=== PATIENT | female | born 1950 | race Caucasian/White ===

== ENCOUNTER 2018-08-28 18:31 | Inpatient (IN) | payer MEDICARE ==
[~2018-08-28] VITALS: Ht 162.6 cm; Wt 58.0 kg
[2018-08-28] MEDS ORDERED: morphine 4 MG/ML inj SYRINge IV ONE (19:35)
[2018-08-28] MEDS ORDERED: ondansetron/PF 4mg/2ml inj IV ONE (19:35)
[2018-08-28 21:45] LABS: CLARITY,URINE SLIGHTLY CLOUDY (Clear); COLOR,URINE YELLOW (Yellow); GLUCOSE, URINE NEGATIVE (Neg); KETONES,URINE 40 mg/dl (Neg); LEUKOCYTE ESTERASE ,URINE NEGATIVE (Neg); NITRITES, URINE NEGATIVE (Neg); OCCULT BLOOD,URINE LARGE (Neg); PROTEIN,URINE 100 mg/dl (Neg)
[2018-08-28 21:51] LABS: UA COLLECTION TYPE FOLEY CATH
[2018-08-28 21:54] LABS: BACTERIA,URINE NONE SEEN /HPF (Neg); HYALINE CASTS 0-3 /LPF (NEGATIVE); MUCUS STRANDS FEW /LPF (Neg); SQUAMOUS EPITHELIAL CELL,UR FEW /LPF (FEW); WBC,URINE 0-4 /HPF (0-4)
[2018-08-28 21:55] LABS: TRANSITIONAL EPI CELLS,URINE FEW /HPF
[2018-08-28] MEDS ORDERED: HYDR-3965 PO (22:35)
[2018-08-28] MEDS ORDERED: WALKERFR (22:35)
[2018-08-28] MEDS ORDERED: ONDA4TAB6 PO (22:35)
--- NOTE | 2018-08-29 00:11 | NUR ---
Next of kin contact [facility] # [phone] Work # [phone]. Sister to be contacted following social service consult.
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
--- NOTE | 2018-08-29 06:19 | NUR ---
PT STILL IN H16 AWAITING MATERIAL EXPEDITOR. NO CHANGE IN CONDITION OVERNIGHT. PT DENIES NEEDS AT THIS TIME.
--- NOTE | 2018-08-29 07:45 | NUR ---
Speech therapy arrived to assess patient, stated that patient is ok to continue with regular diet. No difficulty swallowing.
--- NOTE | 2018-08-29 11:22 | NUR ---
assumed care of pt from Judi TA, pt is resting quietly on gurney, resp even and unlabored,
--- NOTE | 2018-08-29 12:01 | NUR ---
pt is resting quietly on gurney, waiting to be evaluated by hospitalist, pt is oriented to person only, recalls falling, emptied angel of 200ml of ramya urine
--- NOTE | 2018-08-29 12:02 | NUR ---
pt said she lives with her uncle, pt is too weak to walk at this time and is an unsafe discharge home
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
[2018-08-29 12:53] LABS: BASOPHILS % (AUTO) 0.4 % (0-1); EOSINOPHILS % (AUTO) 0.7 % (0-6); HEMOGLOBIN 14.6 g/dl (12.0-16.0); LYMPHOCYTES # (AUTO) 1.1 X10'3 (1.1-4.8); LYMPHOCYTES % (AUTO) 24.4 % (21-51); MEAN CORPUSCULAR HEMOGLOBIN 32.5 PG (27.0-31.0); MEAN CORPUSCULAR VOLUME 95.5 FL (78-98); MEAN PLATELET VOLUME 7.7 FL (7.4-10.4); MONOCYTES # (AUTO) 0.7 X10'3 (0-0.9); MONOCYTES % (AUTO) 15.8 % (2-12); NEUTROPHILS # (AUTO) 2.6 X10'3 (1.8-7.7); NEUTROPHILS % (AUTO) 58.7 % (42-75); PLATELET COUNT 233 X10'3 (140-440); RED CELL DISTRIBUTION WIDTH 12.2 % (11.5-14.5); WHITE BLOOD COUNT 4.3 X10'3 (4.5-11.0)
[2018-08-29 13:03] LABS: ALANINE AMINOTRANSFERASE 25 U/L (12-78); ALBUMIN 3.4 G/DL (3.4-5.0); ALBUMIN/GLOBULIN RATIO 0.9 (1.1-1.5); ALKALINE PHOSPHATASE 92 IU/L (46-116); ANION GAP 10 (8-16); ASPARTATE AMINO TRANSFERASE 19 U/L (10-37); BILIRUBIN,TOTAL 1.3 MG/DL (0.1-1.0); BLOOD UREA NITROGEN 41 MG/DL (7-18); BUN/CREATININE RATIO 36.9 (6.6-38.0); CALCIUM 10.2 MG/DL (8.5-10.1); CHLORIDE 101 MMOL/L (99-107); CREATININE 1.11 MG/DL (0.40-0.90); GLUCOSE 108 MG/DL (70-104); SODIUM 140 MMOL/L (135-145); TOTAL CARBON DIOXIDE 28.6 MMOL/L (24-32); TOTAL PROTEIN 7.3 G/DL (6.4-8.2); eGFR 49 ML/MIN
[2018-08-29] MEDS ORDERED: NO HOME MEDS (13:24)
[2018-08-29 13:28] LABS: POTASSIUM 2.9 MMOL/L (3.5-5.1)
--- NOTE | 2018-08-29 14:16 | NUR ---
pt to MRI
[2018-08-29] MEDS ORDERED: potassium Cl 20 mEq SR tablet PO STA (14:29)
--- NOTE | 2018-08-29 16:24 | NUR ---
pt is resting quietly, sister is at bedside helping pt eat lunch, pt vimal PO meds well, no n/v, waiting for MRI results
--- NOTE | 2018-08-29 17:22 | NUR ---
WAITING ON CHACE NEUROSURGEON FROM [facility] ABOUT CONSULT/TRANSFER. CONTACTED TRANSFER CENTER TO HAVE LOOK AT IMAGES
--- NOTE | 2018-08-29 17:49 | NUR ---
pt continues to rest quietly on hospital bed
--- NOTE | 2018-08-29 19:55 | NUR ---
pt sleeping, resp even and unlabored, still waiting to hear back from neuro at [facility], pt is pleasantly confused (normal per her sister), turned pt to left side, angel continues to drain dark yellow urine, no skin breakdown/reddness to coccyx, buttocks, clam shell brace remains in place, pt is able to move feet and toes, won't and/cannot lift legs off bed due to pain in back per pt, lungs CTA bilaterally, skin p/w/d,
--- NOTE | 2018-08-29 20:41 | NUR ---
PT CONTINUES TO REST QUIETLY ON BED, STILL WAITING TO HEAR FROM NEURO AT [facility]
[2018-08-29] MEDS ORDERED: magnesium hydroxide 30ml (MOM) UD suspension PO PRN (21:00)
[2018-08-29] MEDS ORDERED: magnesium 4gm in 100ml NS 100 ML IV PRN (21:00)
[2018-08-29] MEDS ORDERED: potassium Cl 40MEQ/NS 500ml 500 ML IV PRN ×2 (21:00)
[2018-08-29] MEDS ORDERED: ondansetron/PF 4mg/2ml inj IV PRN (21:00)
[2018-08-29] MEDS ORDERED: temazepam 15mg capsule PO PRN (21:00)
[2018-08-29] MEDS ORDERED: magnesium 2GM in 50ml NS 50 ML IV PRN (21:00)
[2018-08-29] MEDS ORDERED: potassium Cl 20 mEq SR tablet PO PRN ×2 (21:00)
[2018-08-29] MEDS ORDERED: magnesium Cl slow-release 64mg tablet PO PRN (21:00)
[2018-08-29] MEDS ORDERED: bisacodyl 10mg suppository rectal RC PRN (21:00)
[2018-08-29] MEDS ORDERED: HYDROmorphone inj. 0.5 MG/0.5 ML DISP.SYRIN IV PRN (21:00)
[2018-08-29] MEDS ORDERED: HYDROcodone/acetaminophen 5mg/325mg tablet PO PRN (21:00)
[2018-08-29] MEDS ORDERED: mag hydrox/Alum hydrox/simeth 30ml oral suspension PO PRN (21:00)
[2018-08-29] MEDS ORDERED: acetaminophen 325mg tablet PO PRN ×2 (21:00)
[2018-08-29] MEDS ORDERED: HYDROmorphone 1 mg/ml syringe IV PRN (21:00)
[2018-08-29 22:00] VITALS: BP 114/67
--- NOTE | 2018-08-29 22:30 | NUR ---
Received report from Jimena TA from ED. Patient came to floor via a hospital bed. Transferred patient into our ortho bed that has a bed alarm due to patients confusion. Bed in locked & low position. Call light placed within reach. Patient very confused and doesn't know her own name. Vitals taken. Bed alarm and tab alarm placed.
[2018-08-30] MEDS ORDERED: Potassium Cl inj 20 MEQ in normal saline 1000ml 990 ML IV SCH (00:15)
--- NOTE | 2018-08-30 00:39 | NUR ---
CT called to notify nurse that patient may have a bleed or mass. That they were going to do a stat radiology consult. Dr. López informed of information.
[2018-08-30 01:16] LABS: HEMATOCRIT 40.9 % (35.0-45.0); HEMOGLOBIN 13.9 g/dl (12.0-16.0); MEAN CORPUSCULAR HEMOGLOBIN 32.6 PG (27.0-31.0); MEAN CORPUSCULAR VOLUME 95.7 FL (78-98); MEAN PLATELET VOLUME 7.9 FL (7.4-10.4); PLATELET COUNT 217 X10'3 (140-440); RED BLOOD COUNT 4.27 X10'6 (4.20-5.60); RED CELL DISTRIBUTION WIDTH 12.3 % (11.5-14.5); WHITE BLOOD COUNT 5.4 X10'3 (4.5-11.0)
[2018-08-30] MEDS: potassium Cl 20mEq in NS 1,000 ML IV SCH ×3 (01:27→20:34)
[2018-08-30 01:30] LABS: ALBUMIN 3.3 G/DL (3.4-5.0); ANION GAP 6 (8-16); BLOOD UREA NITROGEN 33 MG/DL (7-18); BUN/CREATININE RATIO 42.3 (6.6-38.0); CALCIUM 9.9 MG/DL (8.5-10.1); CHLORIDE 102 MMOL/L (99-107); CREATINE KINASE 141 U/L (26-192); CREATININE 0.78 MG/DL (0.40-0.90); ETHANOL < 0.010 GM/DL (0.0-0.010); GLUCOSE 102 MG/DL (70-104); MAGNESIUM 2.3 MG/DL (1.5-2.4); POTASSIUM 3.6 MMOL/L (3.5-5.1); SODIUM 137 MMOL/L (135-145); TOTAL CARBON DIOXIDE 29.5 MMOL/L (24-32); eGFR 73 ML/MIN
[2018-08-30 01:56] LABS: CLARITY,URINE CLOUDY (Clear); GLUCOSE, URINE NEGATIVE (Neg); KETONES,URINE 15 mg/dl (Neg); LEUKOCYTE ESTERASE ,URINE MODERATE (Neg); NITRITES, URINE POSITIVE (Neg); OCCULT BLOOD,URINE LARGE (Neg); PH,URINE 6.5 (4.8-8.0); PROTEIN,URINE >=300 mg/dl (Neg)
[2018-08-30 01:58] LABS: COLOR,URINE AMBER (Yellow); UA COLLECTION TYPE FOLEY CATH
[2018-08-30 02:02] LABS: BACTERIA,URINE 2+ /HPF (Neg); RBC,URINE TNTC /HPF (0-2); SQUAMOUS EPITHELIAL CELL,UR FEW /LPF (FEW); WBC,URINE 20-30 /HPF (0-4)
[2018-08-30 02:07] LABS: URINE AMPHETAMINE SCREEN NEGATIVE (Neg); URINE BARBITUATE SCREEN NEGATIVE (Neg); URINE BENZODIAZEPINES SCREEN NEGATIVE (Neg); URINE CANNABINOID SCREEN NEGATIVE (Neg); URINE COCAINE SCREEN NEGATIVE (Neg); URINE METHADONE SCREEN NEGATIVE (Neg); URINE OPIATE SCREEN POSITIVE (Neg); URINE PHENCYCLIDINE SCREEN NEGATIVE (Neg)
[2018-08-30 05:00] VITALS: BP 124/73
--- NOTE | 2018-08-30 06:30 | NUR ---
Patient in room ORTHO 4010. I have received report from KEYON Lujan and had the opportunity to ask questions and assume patient care.
--- NOTE | 2018-08-30 06:33 | NUR ---
Problems reprioritized. Patient report given, questions answered & plan of care reviewed with Bobbi TA.
[2018-08-30] MEDS ORDERED: enoxaparin 40mg/0.4ml syringe SQ SCH (08:00)
[2018-08-30] MEDS ORDERED: K and/or MAG REPLACEMENT MC SCH (08:00)
[2018-08-30] MEDS: docusate sod 100mg capsule PO SCH ×2 (08:55→20:57)
[2018-08-30] MEDS: acetylcysteine 200 MG/ml 4ml vial PO SCH ×2 (08:55→20:58)
[2018-08-30 09:20] VITALS: BP 125/65
[2018-08-30] MEDS ORDERED: iohexol 300mg/ml 100ml inj. ONE (11:29)
[2018-08-30] MEDS: HYDROcodone/acetaminophen 10/325mg tab PO PRN ×2 (14:57→16:52)
[2018-08-30] MEDS ORDERED: IBUP-1984 PO (17:12)
[2018-08-30 18:00] VITALS: BP 117/64
--- NOTE | 2018-08-30 18:14 | NUR ---
Problems reprioritized. Patient report given, questions answered & plan of care reviewed with KEYON Brasher.
--- NOTE | 2018-08-30 18:17 | NUR ---
Patient in room ORTHO 4010. I have received report from Sera TA and had the opportunity to ask questions and assume patient care.
[2018-08-30] MEDS ORDERED: CefTRIAXone/D5W-Rocephin 1gm 50 ML IV ONE (20:35)
[2018-08-30 22:00] VITALS: BP 128/69
[2018-08-31] MEDS: potassium Cl 20mEq in NS 1,000 ML IV SCH (04:25)
[2018-08-31 05:35] VITALS: BP 143/88
--- NOTE | 2018-08-31 06:10 | NUR ---
Patient in room ORTHO 4010. I have received report from KEYON Brasher and had the opportunity to ask questions and assume patient care.
[2018-08-31 06:13] LABS: HEMATOCRIT 36.8 % (35.0-45.0); HEMOGLOBIN 12.5 g/dl (12.0-16.0); MEAN CORPUSCULAR HEMOGLOBIN 32.5 PG (27.0-31.0); MEAN CORPUSCULAR HGB CONC 33.9 g/dL (33.0-36.5); MEAN CORPUSCULAR VOLUME 96.1 FL (78-98); MEAN PLATELET VOLUME 7.7 FL (7.4-10.4); PLATELET COUNT 177 X10'3 (140-440); RED BLOOD COUNT 3.83 X10'6 (4.20-5.60); RED CELL DISTRIBUTION WIDTH 12.1 % (11.5-14.5); WHITE BLOOD COUNT 3.7 X10'3 (4.5-11.0)
[2018-08-31 06:20] LABS: ALBUMIN 2.7 G/DL (3.4-5.0); ANION GAP 5 (8-16); BLOOD UREA NITROGEN 10 MG/DL (7-18); BUN/CREATININE RATIO 18.5 (6.6-38.0); CHLORIDE 106 MMOL/L (99-107); CREATININE 0.54 MG/DL (0.40-0.90); GLUCOSE 94 MG/DL (70-104); POTASSIUM 3.8 MMOL/L (3.5-5.1); SODIUM 139 MMOL/L (135-145); eGFR > 90 ML/MIN
--- NOTE | 2018-08-31 06:22 | NUR ---
Problems reprioritized. Patient report given, questions answered & plan of care reviewed with SARAHY TA.
--- NOTE | 2018-08-31 08:40 | NUR ---
Pt to be transferred to [facility], pt's sister notified re transfer, sister okayed.
[2018-08-31] MEDS ORDERED: methylPREDNISolone sod succ 125mg/2ml vial IV SCH (09:02)
--- NOTE | 2018-08-31 09:30 | NUR ---
Spoke with KEYON Cardenas at transfer center. Provided pt synopsis. RN states she is working on coordinating the transfer on her end and will be in contact with surgeon/case management.
--- NOTE | 2018-08-31 10:55 | NUR ---
Called report to Steffi, receiving RN at [facility]. Advised of pt's status, current medical condition.
--- NOTE | 2018-08-31 11:20 | NUR ---
Pt transported to [facility] via gurney in ambulance/emergency personnel. IV was continued, angel was continued. Pt to be taken to [facility], room 473B. Pt is awake but somewhat disoriented/confused at times.
[2018-08-31] MEDS ORDERED: heparin, porcine 5000 units/ml vial SQ SCH (20:00)
== END 2018-08-31 11:20 | disposition short-term general hospital (02) | DRG 552 ==
LOC: ER 18:32 → ORTHO 4S 08-29 21:27 → CMPBEDREQ 08-29 23:10
PROVIDERS: ADMIT Family Medicine; ATTEND Internal Medicine
PROC: BW281ZZ Computerized Tomography (CT Scan) of Head using Low Osmolar Contrast (ICD-10-PCS; principal; 2018-08-30)
DX: S22.081A Stable burst fracture of T11-T12 vertebra, initial encounter for closed fracture (principal); N39.0 Urinary tract infection, site not specified; G93.40 Encephalopathy, unspecified; N17.9 Acute kidney failure, unspecified; E87.6 Hypokalemia; R74.0 Nonspecific elevation of levels of transaminase and lactic acid dehydrogenase [LDH]; F03.90 Unspecified dementia, unspecified severity, without behavioral disturbance, psychotic disturbance, mood disturbance, and anxiety; K80.20 Calculus of gallbladder without cholecystitis without obstruction; M85.80 Other specified disorders of bone density and structure, unspecified site; N18.9 Chronic kidney disease, unspecified; D32.9 Benign neoplasm of meninges, unspecified; W18.39XA Other fall on same level, initial encounter; Y93.89 Activity, other specified; Y92.89 Other specified places as the place of occurrence of the external cause; Y99.8 Other external cause status
CPT/HCPCS: 36415; 70450; 70460; 72131; 72146; 72192; 80048; 80053; 80305; 80320; 81001; 82550; 83735; 84132; 85025; 85027; 87070; 87077; 87088; 87186; 96374; 96375; 97110; 97162; 99284; 99285; G0378; J0696; J1170; J1650; J2270; J2405; J2930; J3480; J7030; Q9967